=== PATIENT | male | born 1945 | race Caucasian/White ===

== ENCOUNTER → 2018-12-28 | Outpatient (CLI) | payer BC, MEDICARE ==
[2018-12-28 14:30] LABS: ANION GAP 14.7; CHLORIDE,CL 103 mmol/L (101-111); SODIUM,NA 135 mmol/L (135-145)
== END ==
LOC: DL.CLIN 11:25
PROVIDERS: ATTEND Nurse Practitioner
DX: Z12.5 Encounter for screening for malignant neoplasm of prostate (principal); R53.83 Other fatigue; R50.9 Fever, unspecified
CPT/HCPCS: 36415; 80053; 85025; 99214; G0103

== ENCOUNTER 2020-02-08 06:55 | Emergency (ER) | payer BC, MEDICARE ==
[2020-02-08 07:03] VITALS: BP 70/53; PULSE 92
[2020-02-08] MEDS ORDERED: Octreotide 100 MCG/ML SDV IVPUSH ONE (07:04)
[2020-02-08] MEDS ORDERED: Pantoprazole 40 MG Vial IVPUSH ONE (07:04)
[2020-02-08] MEDS ORDERED: Sodium Chloride 0.9% 10 ML Syringe FLUSH PRN ×2 (07:04→07:06)
[2020-02-08] MEDS ORDERED: Ondansetron 4 MG/2 ML SDV IV ONE ×2 (07:04→07:23)
[2020-02-08] MEDS ORDERED: Sodium Chloride 0.9% 1,000 ML IV ONE ×2 (07:04→08:00)
--- NOTE | 2020-02-08 07:04 | EDM.PDOC ---
ED HPI GENERAL MEDICAL PROBLEM - General Chief Complaint: Gastrointestinal Problem Stated Complaint: AMBULANCE Time Seen by Provider: 02/08/20 07:03 Source of Information: Reports: Patient, EMS, Old Records, RN, RN Notes Reviewed History Limitations: Reports: No Limitations - History of Present Illness INITIAL COMMENTS - FREE TEXT/NARRATIVE: 74 y.o male arrives to ER from home by [facility] with diarrhea and vomiting that began last night at 2200HRS with pain beginning at around midnight. 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 Pt reports last meal was potato salad late last evening. Pt reports Hx of ulcer approx 40 years ago that was corrected with surgery. Reports that vomiting was dark brown in color mixed with food material. Pt's reported some pink color in pt's emesis that she thought might be blood. Pt denies bloody or coffee ground emesis, or bloody, black, or melanotic stools. Pt admits to feeling mildly feverish last evening and again early this morning. Denies Hx of alcohol use or esophageal varices. Onset: Today Duration: Constant Location: Reports: Abdomen Quality: Reports: Other (Cramping) Severity: Moderate Improves with: Reports: None Worsens with: Reports: None Associated Symptoms: Reports: No Other Symptoms Abdomen Pain Score (Numeric/FACES): 2 - Related Data Allergies Allergy/AdvReac Type Severity Reaction Status Date / Time No Known Allergies Allergy Verified 02/08/20 07:05 Home Meds: Home Meds Lamont-3/DHA/Epa/Fish Oil [Lamont-3 Fish Oil 1,000 MG Sfgl] 1 cap PO DAILY [History] Omeprazole [Prilosec] 10 tab PO DAILY 07/24/15 [History] Past Medical History HEENT History: Reports: Cataract, Impaired Vision Other HEENT History: WEARS CORRECTIVE LENSES; 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; ONE IMPLANT TOP TOOTH Cardiovascular History: Reports: Hypertension Gastrointestinal History: Reports: GERD, PUD (remote) Genitourinary History: Reports: Other (See Below) Other Genitourinary History: NOCTURIA - Past Surgical History HEENT Surgical History: Reports: Cataract Surgery GI Surgical History: Reports: Colonoscopy, Other (See Below) Social & Family History - Family History Family Medical History: Noncontributory - Tobacco Use Smoking Status *Q: Never Smoker - Alcohol Use Alcohol Use History: No - Recreational Drug Use Recreational Drug Use: No - Living Situation & Occupation Living situation: Reports: , with Spouse Occupation: Employed ED ROS GENERAL - Review of Systems Review Of Systems: Comprehensive ROS is negative, except as noted in HPI. ED EXAM, GI/ABD - Physical Exam Exam: See Below Exam Limited By: No Limitations General Appearance: Alert, No Apparent Distress, Active Emesis Eyes: Bilateral: Normal Appearance (No scleral icterus), EOMI Nose: Normal Inspection, Normal Mucosa, No Blood Throat/Mouth: Normal Lips, Normal Teeth, Normal Gums, Normal Oropharynx, Normal Voice, No Airway Compromise, Other (Dry oral mucosa) Head: Atraumatic, Normocephalic Neck: Normal Inspection, Supple, Non-Tender, Full Range of Motion. No: Lymphadenopathy (L), Lymphadenopathy (R) Respiratory/Chest: No Respiratory Distress, Lungs Clear, Normal Breath Sounds, No Accessory Muscle Use, Chest Non-Tender Cardiovascular: Normal Peripheral Pulses, Regular Rate, Rhythm, No Edema, No Gallop, No JVD, No Murmur, No Rub GI/Abdominal Exam: Normal Bowel Sounds, Soft, No Organomegaly, No Distention, No Abnormal Bruit, No Mass, Tender (mild epigastric tenderness). No: Guarding, Rigid, Rebound (Male) Exam: Deferred Rectal (Males) Exam: Deferred Back Exam: Normal Inspection Extremities: Normal Inspection, Normal Range of Motion, Non-Tender, Normal Capillary Refill, No Pedal Edema Neurological: Alert, Oriented, CN II-XII Intact, Normal Cognition, No Motor/ Sensory Deficits Psychiatric: Normal Affect, Normal Mood Skin Exam: Warm, Dry, Intact, Normal Color, No Rash. No: Ecchymosis, Jaundice, Pallor, Petechiae Course - Vital Signs Last Recorded V/S: Last Vital Signs Temp 99.1 F 02/08/20 06:59 Pulse 92 02/08/20 06:59 Resp 18 02/08/20 06:59 BP 70/53 L 02/08/20 06:59 Pulse Ox 96 02/08/20 06:59 Recheck BP: 104/54 - Orders/Labs/Meds Orders: Active Orders 24 hr Category Date Time Status Peripheral IV Care [RC] . DIRECTED Care 02/08/20 07:05 Active Peripheral IV Care [RC] . DIRECTED Care 02/08/20 07:06 Active CULTURE BLOOD [BC] Stat Lab 02/08/20 07:05 Results CULTURE BLOOD [BC] Stat Lab 02/08/20 07:22 Received DRUG SCREEN URINE BIORAD [URCHEM] Stat Lab 02/08/20 07:05 Ordered TYPE AND SCREEN [BBK] Stat Lab 02/08/20 07:05 Received UA RFX REESE AND CULT IF INDIC [URIN] Stat Lab 02/08/20 07:05 Ordered Pantoprazole [ProTONIX IV] 40 mg Med 02/08/20 08:00 Active Sodium Chloride 0.9% [Normal Saline] 100 ml IV .CONTINUOS Sodium Chloride 0.9% [Normal Saline] 1,000 ml Med 02/08/20 08:00 Active IV .BOLUS Sodium Chloride 0.9% [Saline Flush] Med 02/08/20 07:04 Active 10 ml FLUSH ASDIRECTED PRN Sodium Chloride 0.9% [Saline Flush] Med 02/08/20 07:06 Active 10 ml FLUSH ASDIRECTED PRN Blood Culture x2 Reflex Set [OM.PC] Stat Oth 02/08/20 07:05 Ordered Peripheral IV Insertion Adult [OM.PC] Stat Oth 02/08/20 07:05 Ordered Peripheral IV Insertion Adult [OM.PC] Stat Oth 02/08/20 07:06 Ordered Medication Orders Pantoprazole Sodium 40 mg/ (Sodium Chloride) 100 mls @ 20 mls/hr IV .CONTINUOS NELDA Last Admin: 02/08/20 08:03 Dose: 20 mls/hr Sodium Chloride (Normal Saline) 1,000 mls @ 999 mls/hr IV .BOLUS ONE Stop: 02/08/20 09:00 Last Infusion: 02/08/20 08:05 Dose: 400 mls/hr Admin: 02/08/20 08:03 Dose: 999 mls/hr Sodium Chloride (Saline Flush) 10 ml FLUSH ASDIRECTED PRN PRN Reason: Keep Vein Open Last Admin: 02/08/20 07:11 Dose: 10 ml Sodium Chloride (Saline Flush) 10 ml FLUSH ASDIRECTED PRN PRN Reason: Keep Vein Open Last Admin: 02/08/20 07:12 Dose: 10 ml Labs: Laboratory Tests 02/08/20 02/08/20 02/08/20 Range/Units 07:05 07:05 07:05 WBC 8.3 (5.0-10.0) 10^3/uL RBC 4.80 (4.6-6.2) 10^6/uL Hgb 14.8 (14.0-18.0) g/dL Hct 43.5 (40.0-54.0) % MCV 90.6 (80-100) fL MCH 30.8 (27.0-34.0) pg MCHC 34.0 (33.0-35.0) g/dL Plt Count 152 (150-450) 10^3/uL Neut % (Auto) 90.8 H (42.2-75.2) % Lymph % (Auto) 3.3 L (20.5-50.1) % Gilmer % (Auto) 5.4 (2-8) % Eos % (Auto) 0.4 L (1.0-3.0) % Baso % (Auto) 0.1 (0.0-1.0) % PT 10.4 (9.0-12.0) SEC INR 1.1 (0.9-1.2) APTT 22.4 (22.0-34.0) SEC Sodium 140 (136-145) mmol/L Potassium 3.6 (3.5-5.1) mmol/L Chloride 104 (98-107) mmol/L Carbon Dioxide 22 (21-32) mmol/L Anion Gap 17.6 H (7-13) mEq/L BUN 21 H (7-18) mg/dL Creatinine 1.18 (0.70-1.30) mg/dL Est Cr Clr Drug Dosing 56.32 mL/min Estimated GFR (MDRD) > 60 BUN/Creatinine Ratio 17.8 (No establ ref range) Glucose 128 H (74-99) mg/dL Lactic Acid (0.4-2.0) mmol/L Calcium 8.1 L (8.5-10.1) mg/dL Total Bilirubin 1.8 H (0.2-1.0) mg/dL AST 18 (15-37) U/L ALT 20 (16-63) U/L Alkaline Phosphatase 91 (46-116) U/L Troponin I 0.023 (0.000-0.056) ng/mL Total Protein 6.9 (6.4-8.2) g/dL Albumin 3.7 (3.4-5.0) g/dL Globulin 3.2 Albumin/Globulin Ratio 1.2 Amylase 32 (25-115) U/L Lipase 90 (73-393) U/L Ethyl Alcohol < 3 (0) mg/dL 02/08/20 Range/Units 07:05 WBC (5.0-10.0) 10^3/uL RBC (4.6-6.2) 10^6/uL Hgb (14.0-18.0) g/dL Hct (40.0-54.0) % MCV (80-100) fL MCH (27.0-34.0) pg MCHC (33.0-35.0) g/dL Plt Count (150-450) 10^3/uL Neut % (Auto) (42.2-75.2) % Lymph % (Auto) (20.5-50.1) % Gilmer % (Auto) (2-8) % Eos % (Auto) (1.0-3.0) % Baso % (Auto) (0.0-1.0) % PT (9.0-12.0) SEC INR (0.9-1.2) APTT (22.0-34.0) SEC Sodium (136-145) mmol/L Potassium (3.5-5.1) mmol/L Chloride (98-107) mmol/L Carbon Dioxide (21-32) mmol/L Anion Gap (7-13) mEq/L BUN (7-18) mg/dL Creatinine (0.70-1.30) mg/dL Est Cr Clr Drug Dosing mL/min Estimated GFR (MDRD) BUN/Creatinine Ratio (No establ ref range) Glucose (74-99) mg/dL Lactic Acid 1.0 (0.4-2.0) mmol/L Calcium (8.5-10.1) mg/dL Total Bilirubin (0.2-1.0) mg/dL AST (15-37) U/L ALT (16-63) U/L Alkaline Phosphatase (46-116) U/L Troponin I (0.000-0.056) ng/mL Total Protein (6.4-8.2) g/dL Albumin (3.4-5.0) g/dL Globulin Albumin/Globulin Ratio Amylase (25-115) U/L Lipase (73-393) U/L Ethyl Alcohol (0) mg/dL Meds: Medications Generic Name Dose Route Start Last Admin Trade Name Freq PRN Reason Stop Dose Admin Pantoprazole Sodium 40 mg/ 100 mls @ 20 mls/hr 02/08/20 08:00 02/08/20 08:03 Sodium Chloride IV 20 mls/hr .CONTINUOS NELDA Administration Sodium Chloride 1,000 mls @ 999 mls/hr 02/08/20 08:00 02/08/20 08:05 Normal Saline IV 02/08/20 09:00 400 mls/hr .BOLUS ONE Infusion Sodium Chloride 10 ml 02/08/20 07:04 02/08/20 07:11 Saline Flush FLUSH 10 ml ASDIRECTED PRN Administration Keep Vein Open Sodium Chloride 10 ml 02/08/20 07:06 02/08/20 07:12 Saline Flush FLUSH 10 ml ASDIRECTED PRN Administration Keep Vein Open Discontinued Medications Generic Name Dose Route Start Last Admin Trade Name Freq PRN Reason Stop Dose Admin Sodium Chloride 1,000 mls @ 999 mls/hr 02/08/20 07:04 02/08/20 07:05 Normal Saline IV 02/08/20 08:04 999 mls/hr .BOLUS ONE Administration Methylprednisolone Sodium Succinate 125 mg 02/08/20 07:50 02/08/20 08:06 Solu-Medrol IVPUSH 02/08/20 07:51 Not Given ONETIME ONE Octreotide Acetate 50 mcg 02/08/20 07:04 02/08/20 07:13 Sandostatin IVPUSH 02/08/20 07:05 50 mcg ONETIME ONE Administration Ondansetron HCl 4 mg 02/08/20 07:04 02/08/20 07:13 Zofran IV 02/08/20 07:05 4 mg ONETIME ONE Administration Ondansetron HCl 4 mg 02/08/20 07:23 02/08/20 07:27 Zofran IV 02/08/20 07:24 4 mg ONETIME ONE Administration Pantoprazole Sodium 80 mg 02/08/20 07:04 02/08/20 07:13 Protonix Iv IVPUSH 02/08/20 07:05 80 mg .BOLUS ONE Administration Departure - Departure Time of Disposition: 08:10 Disposition: DC/Tfer to [facility] 02 Condition: Serious Clinical Impression: Upper GI bleed, Nausea, vomiting, and diarrhea - Discharge Information *PRESCRIPTION DRUG MONITORING PROGRAM REVIEWED*: Not Applicable *COPY OF PRESCRIPTION DRUG MONITORING REPORT IN PATIENT HOA: Not Applicable Forms: ED Department Discharge, Interfacility Transfer EMTALA Sepsis Event Note - Focused Exam Vital Signs: Vital Signs Temp Pulse Resp BP Pulse Ox 02/08/20 06:59 99.1 F 92 18 70/53 L 96 Date Exam was Performed: 02/08/20 Time Exam was Performed: 08:09 - My Orders Last 24 Hours: My Active Orders 02/08/20 07:04 Sodium Chloride 0.9% [Saline Flush] 10 ml FLUSH ASDIRECTED PRN 02/08/20 07:05 Peripheral IV Care [RC] . DIRECTED CULTURE BLOOD [BC] Stat DRUG SCREEN URINE BIORAD [URCHEM] Stat TYPE AND SCREEN [BBK] Stat UA RFX REESE AND CULT IF INDIC [URIN] Stat Blood Culture x2 Reflex Set [OM.PC] Stat Peripheral IV Insertion Adult [OM.PC] Stat 02/08/20 07:06 Peripheral IV Care [RC] . DIRECTED Sodium Chloride 0.9% [Saline Flush] 10 ml FLUSH ASDIRECTED PRN Peripheral IV Insertion Adult [OM.PC] Stat 02/08/20 07:22 CULTURE BLOOD [BC] Stat 02/08/20 08:00 Pantoprazole [ProTONIX IV] 40 mg Sodium Chloride 0.9% [Normal Saline] 100 ml IV .CONTINUOS Sodium Chloride 0.9% [Normal Saline] 1,000 ml IV .BOLUS - Assessment/Plan Last 24 Hours: My Active Orders 02/08/20 07:04 Sodium Chloride 0.9% [Saline Flush] 10 ml FLUSH ASDIRECTED PRN 02/08/20 07:05 Peripheral IV Care [RC] . DIRECTED CULTURE BLOOD [BC] Stat DRUG SCREEN URINE BIORAD [URCHEM] Stat TYPE AND SCREEN [BBK] Stat UA RFX REESE AND CULT IF INDIC [URIN] Stat Blood Culture x2 Reflex Set [OM.PC] Stat Peripheral IV Insertion Adult [OM.PC] Stat 02/08/20 07:06 Peripheral IV Care [RC] . DIRECTED Sodium Chloride 0.9% [Saline Flush] 10 ml FLUSH ASDIRECTED PRN Peripheral IV Insertion Adult [OM.PC] Stat 02/08/20 07:22 CULTURE BLOOD [BC] Stat 02/08/20 08:00 Pantoprazole [ProTONIX IV] 40 mg Sodium Chloride 0.9% [Normal Saline] 100 ml IV .CONTINUOS Sodium Chloride 0.9% [Normal Saline] 1,000 ml IV .BOLUS
[2020-02-08 07:34] LABS: ANION GAP 17.6 mEq/L (7-13); CHLORIDE,CL 104 mmol/L (98-107); SODIUM,NA 140 mmol/L (136-145)
[2020-02-08 07:50] LABS: PTT,PARTIAL THROMBOPLSTIN TIME 22.4 SEC (22.0-34.0)
[2020-02-08] MEDS ORDERED: methylPREDNISolone Sodium Succinate 125 MG/2 ML SDV IVPUSH ONE (07:50)
[2020-02-08] MEDS ORDERED: Pantoprazole 40 MG in Sodium Chloride 0.9% 100 ML IV SCH (08:00)
== END 2020-02-08 08:29 ==
LOC: DL.ED 06:55
DX: K92.2 Gastrointestinal hemorrhage, unspecified (principal); R19.7 Diarrhea, unspecified; I10 Essential (primary) hypertension; K21.9 Gastro-esophageal reflux disease without esophagitis; Z79.899 Other long term (current) drug therapy
CPT/HCPCS: 36415; 80053; 80307; 82150; 82271; 83605; 83690; 84484; 85025; 85610; 85730; 86850; 86900; 86901; 87040; 96361; 96365; 96375; 96376; 99285; C9113; J2354; J2405; J7030; J7050